=== PATIENT | female | born 1990 | race Caucasian/White ===

== ENCOUNTER → 2018-05-28 | Outpatient (CLI) | payer OTHER, BC ==
[~2018-05-28] MED LIST: ACE325 PO; DOCU240C67 PO; ETON1VAG7 VG; HYDR-385 PO; IBU200 PO; IBUP200C74 PO; IBUP600T22 PO; KET10 PO; LEVO25TA56 PO; LOR5/325 PO; Lanolin TP; MULT-1335 PO; NORG1TAB5 PO; PER PO; PNV PO
--- NOTE | 2018-05-28 12:08 | RADIOLOGY IMAGING REPORT ---
FACILITY: [facility] PATIENT NAME: Cam Austin : 1990 MR: [id number] V: [id number] EXAM DATE: ORDERING PHYSICIAN: SABINA ROSEN TECHNOLOGIST: Location: [facility] Patient: Cam Austin : 1990 Visit/Account:[id number] Date of Sevice: 05/28/2018 KIDNEYS INDICATION: Pain, bleeding COMPARISON: None available FINDINGS: The right kidney measures 12.3 x 4 x 4.8 cm. The left kidney measures 11 x 4.5 x 5.4 cm. Renal echogenicity is normal. No renal mass identified. Mild right hydronephrosis. Otherwise nor mal kidneys. No apparent bladder abnormality. Bilateral ureteral jets were visualized. Post void bladder volume measured 10 mL. IMPRESSION: Mild right hydronephrosis of indeterminate etiology. Hydronephrosis related to an obstructive right ureteral calculus or related to recent passage of a right ureteral calculus cannot be excluded. Correlate with site of pain. Otherwise normal renal ultrasound. Report Dictated By: Aguila Pierre MD at 05/28/2018 12:02 PM Report E-Signed By: Aguila Pierre MD at 05/28/2018 12:04 PM WSN:[email or web address]
== END ==
LOC: US 10:36
PROVIDERS: ATTEND Nurse Practitioner Family
DX: N13.30 Unspecified hydronephrosis (principal); N20.0 Calculus of kidney
CPT/HCPCS: 76705

== ENCOUNTER 2018-08-17 14:32 | Outpatient (RCR) | payer BC ==
[2018-08-18] MEDS ORDERED: NS(*) 0.9% 50 ML BAG 50 ML ONE (16:34)
[2018-08-18] MEDS ORDERED: IOPAMIDOL 76% 150 ML INFUS BTL 150 ML ONE (16:34)
--- NOTE | 2018-08-18 17:22 | RADIOLOGY IMAGING REPORT ---
FACILITY: [facility] PATIENT NAME: Cam Austin : 1990 MR: [id number] V: [id number] EXAM DATE: ORDERING PHYSICIAN: PERRY CORRALES TECHNOLOGIST: Location: [facility] Patient: Cam Austin : 1990 Visit/Account:[id number] Date of Sevice: 08/18/2018 ABDOMEN/PELVIS W/WO CONTRAST HISTORY: Hydronephrosis, right flank pain TECHNIQUE: Axial images acquired through the abdomen/pelvis both with and without IV contrast.. Qasim nal and sagittal reformatting also performed.Dose Lowering Technique One of the following dose optimization techniques was utilized in the performance of this exam: Autom ated exposure control; adjustment of the mA and/or kV according to the patient's size; or use of an i terative reconstruction technique. Specific details can be referenced in the facility's radiology C T exam operational policy. CONTRAST: 125 mL [id number] COMPARISON: CT abdomen pelvis June 04, 2012 renal ultrasound May 28, 2018 FINDINGS: Visualized lung bases: Negative. Hepatobiliary: There are postsurgical changes from a cholecystectomy Spleen: Negative. Adrenals: Negative. Pancreas: Negative. Kidneys ureters and bladder: There is a 1 mm nonobstructing calculus lower pole of the right kidney. There is mild right hydronephrosis and mild dilatation of the proximal two thirds of the right urete r. No calculi are identified in the left renal collecting system and no calculi are identified withi n the ureters. There is a tiny cyst in the upper pole the left kidney Genitalia: IUD within the endometrial canal. There is a 1.9 cm left ovarian cyst GI: Negative. Vessels/spaces/nodes: Negative. Bones/soft tissues: There is a small umbilical hernia containing fat Additional findings: None pertinent. IMPRESSION: 1 mm nonobstructing calculus lower pole the right kidney Mild right hydronephrosis and mild dilatation of the proximal two thirds of the right ureter although no obstructing calculi are identified. 1.9 cm left ovarian cyst Report Dictated By: Ivon Wolf MD at 08/18/2018 5:11 PM Report E-Signed By: Ivon Wolf MD at 08/18/2018 5:18 PM WSN:[email or web address]
== END 2018-08-18 18:00 | disposition home or self-care (01) ==
LOC: CT 14:32
PROVIDERS: ATTEND Urology
DX: N20.0 Calculus of kidney (principal); N13.30 Unspecified hydronephrosis; N83.202 Unspecified ovarian cyst, left side
CPT/HCPCS: 36415; 74178; 82565; J7050; Q9967